=== PATIENT | male | born 1990 | race Caucasian/White ===

== ENCOUNTER 2021-02-22 15:22 | Emergency (ER) | payer MEDICAID ==
[~2021-02-22] VITALS: Ht 180.3 cm; Wt 63.6 kg
[2021-02-22 16:26] VITALS: BP 110/73
[2021-02-22] MEDS ORDERED: NAPROXEN 250 MG TABLET PO ONE (16:45)
[2021-02-22] MEDS ORDERED: METHOCARBAMOL 500 MG TABLET PO ONE (16:45)
== END 2021-02-22 16:53 | disposition home or self-care (01) ==
LOC: EMS 15:27
DX: U07.1 COVID-19 (principal); F15.90 Other stimulant use, unspecified, uncomplicated; F17.210 Nicotine dependence, cigarettes, uncomplicated; Z91.018 Allergy to other foods
CPT/HCPCS: 93005; 99283